=== PATIENT | female | born 1945 | race Hispanic/Latino ===

== ENCOUNTER → 2019-04-29 | Outpatient (CLI) | payer OTHER ==
[2019-04-29 16:56] LABS: BASOPHILS % (AUTO) 0.3 % (0.0-5.0); EOSINOPHILS % (AUTO) 2.5 % (0.0-8.0); HEMATOCRIT 31.9 % (36-48); LYMPHOCYTES % (AUTO) 34.4 % (21.0-51.0); MEAN CORPUSCULAR HEMOGLOBIN 29.6 pg (27.0-33.0); MEAN CORPUSCULAR HGB CONC 33.1 g/dL (32.0-36.0); MEAN CORPUSCULAR VOLUME 89.6 fL (79-99); MONOCYTES % (AUTO) 7.5 % (3.0-13.0); NEUTROPHILS % (AUTO) 55.3 % (40.0-77.0); PLATELET COUNT (AUTO) 92 K/uL (130-400); RED BLOOD CELL COUNT(AUTO) 3.56 MIL/uL (4.00-5.50); RED CELL DISTRIBUTION WIDTH 15.9 % (11.0-15.5); WHITE BLOOD COUNT (AUTO) 5.6 K/uL (4.8-10.8)
[2019-04-29 17:06] LABS: INR 1.09 (0.85-1.15); PROTHROMBIN TIME 11.4 SEC (9.6-11.6)
[2019-04-29 17:13] LABS: ALBUMIN 3.3 g/dL (3.5-5.0); CREATININE 0.9 mg/dL (0.5-1.5)
[2019-04-29 17:26] LABS: BILIRUBIN,TOTAL 1.2 mg/dL (0.2-1.0); TOTAL PROTEIN, SERUM 7.3 g/dL (6.0-8.3)
[2019-05-05 05:10] LABS: HEPATITIS Bs ANTIGEN SCREEN P Negative (Negative)
== END | disposition home or self-care (01) ==
LOC: LAB 15:47
PROVIDERS: ATTEND Internal Medicine Gastroenterology
DX: R94.5 Abnormal results of liver function studies (principal); R19.7 Diarrhea, unspecified
CPT/HCPCS: 36415; 80053; 82105; 82172; 82247; 82977; 83010; 83883; 84460; 85025; 85610; 86706; 86717; 87177; 87340; 87350; 87507

== ENCOUNTER → 2021-10-26 | Outpatient (CLI) | payer OTHER | END | disposition home or self-care (01) | LOC: RAH 09:31 | PROVIDERS: ATTEND Internal Medicine Gastroenterology | DX: K80.20 Calculus of gallbladder without cholecystitis without obstruction (principal); K76.89 Other specified diseases of liver; R18.8 Other ascites | CPT/HCPCS: 76700 ==

== ENCOUNTER → 2021-11-21 | Outpatient (CLI) | payer OTHER ==
[~2021-11-21] MED LIST: ALBUMIN (HUMAN) 25% 200 ML IV SCH; LIDOCAINE HCL MPF 1% 5ML VIAL ONE
[2021-11-21 08:35] LABS: BASOPHILS % (AUTO) 0.6 % (0.0-5.0); EOSINOPHILS % (AUTO) 3.1 % (0.0-8.0); HEMATOCRIT 27.3 % (36-48); LYMPHOCYTES % (AUTO) 31.4 % (21.0-51.0); MEAN CORPUSCULAR HEMOGLOBIN 26.1 pg (27.0-33.0); MEAN CORPUSCULAR HGB CONC 30.4 g/dL (32.0-36.0); MEAN CORPUSCULAR VOLUME 85.8 fL (79-99); MONOCYTES % (AUTO) 10.4 % (3.0-13.0); NEUTROPHILS % (AUTO) 54.2 % (40.0-77.0); PLATELET COUNT (AUTO) 59 K/uL (130-400); RED BLOOD CELL COUNT(AUTO) 3.18 MIL/uL (4.00-5.50); RED CELL DISTRIBUTION WIDTH 17.8 % (11.0-15.5); WHITE BLOOD COUNT (AUTO) 3.6 K/uL (4.8-10.8)
[2021-11-21 08:44] LABS: INR 1.28 (0.85-1.15); PROTHROMBIN TIME 13.6 SEC (9.6-11.6)
[2021-11-21 08:53] LABS: ALBUMIN 2.9 g/dL (3.5-5.0); BILIRUBIN,TOTAL 1.3 mg/dL (0.2-1.0); CREATININE 0.7 mg/dL (0.5-1.5)
[2021-11-21 09:45] LABS: EOSINOPHILS % (MANUAL) 1 % (1-6); LYMPHOCYTES % (MANUAL) 33 % (22-44); MAN.DIFF COMMENT-IMPRESSION MANUAL DIFFERENTIAL; MONOCYTES % (MANUAL) 3 % (2-9); PLATELET MORPHOLOGY COMMENT DECREASED; SEGMENTED NEUTROPHILS % 63 % (40-70)
[2021-11-21 14:49] LABS: APPEARANCE BODY FLUID SLIGHTLY CLOUDY (CLEAR); SPECIMENTYPE,BODY FLUID ASCITES
[2021-11-21 14:50] LABS: BODY FLUID RBC 620 /cu. mm.; BODY FLUID WBC 114 /cu. mm.; COLOR,BODY FLUID YELLOW (LT YELLOW); TOTAL VOLUME,BODY FLUID 5200 mL
[2021-11-21 14:52] LABS: BF LYMPHOCYTE 76 %; BF MONOCYTE 7 %
== END | disposition home or self-care (01) ==
LOC: RAH 07:29
PROVIDERS: ATTEND Internal Medicine Gastroenterology
DX: R18.8 Other ascites (principal); K76.89 Other specified diseases of liver; Z79.01 Long term (current) use of anticoagulants; Z79.899 Other long term (current) drug therapy
CPT/HCPCS: 36415; 49083; 80053; 82042; 84157; 85025 ×2; 85610; 87071; 87205; 88112; 88305; 89051; C1729; J3490; P9046

== ENCOUNTER 2022-02-02 08:19 | Emergency (ER) | payer OTHER ==
[~2022-02-02] VITALS: Ht 154.9 cm; Wt 89.4 kg
[2022-02-02 08:21] VITALS: BP 127/43
[2022-02-02] MEDS ORDERED: FURO40TA5 PO (23:27)
[2022-02-02] MEDS ORDERED: PANT40TA54 PO (23:27)
[2022-02-02] MEDS ORDERED: GLIM4TAB36 PO (23:27)
[2022-02-02] MEDS ORDERED: SPIR100T5 PO (23:27)
[2022-02-02] MEDS ORDERED: TRAZ-253 PO (23:28)
[2022-02-02] MEDS ORDERED: SIMV-43 PO (23:28)
[2022-02-02] MEDS ORDERED: LOSA25TA41 PO (23:28)
[2022-02-02] MEDS ORDERED: ONDA-104 PO (23:32)
== END 2022-02-02 09:45 | disposition home or self-care (01) ==
LOC: EDH 08:19
DX: Z04.89 Encounter for examination and observation for other specified reasons (principal); E11.9 Type 2 diabetes mellitus without complications
CPT/HCPCS: 99281

== ENCOUNTER → 2022-02-02 | Outpatient (CLI) | payer OTHER ==
[~2022-02-02] MED LIST changes: +FURO40TA5 PO; +GLIM4TAB36 PO; -LIDOCAINE HCL MPF 1% 5ML VIAL ONE; +LOSA25TA41 PO; +ONDA-104 PO; +PANT40TA54 PO; +SIMV-43 PO; +SPIR100T5 PO; +TRAZ-253 PO
[2022-02-02 13:04] LABS: INR 1.17 (0.85-1.15); PROTHROMBIN TIME 12.6 SEC (9.6-11.6)
[2022-02-02 13:06] LABS: BILIRUBIN,TOTAL 1.4 mg/dL (0.2-1.0); TOTAL PROTEIN, SERUM 7.5 g/dL (6.0-8.3)
== END | disposition home or self-care (01) ==
LOC: RAH 11:39
PROVIDERS: ATTEND Internal Medicine Gastroenterology
DX: R18.8 Other ascites (principal); K42.0 Umbilical hernia with obstruction, without gangrene; K74.60 Unspecified cirrhosis of liver; I10 Essential (primary) hypertension; E11.9 Type 2 diabetes mellitus without complications; E66.9 Obesity, unspecified; Z68.32 Body mass index [BMI] 32.0-32.9, adult
CPT/HCPCS: 36415; 76705; 80053; 85610; P9046

== ENCOUNTER 2022-03-11 14:21 | Emergency (ER) | payer OTHER ==
[~2022-03-11] VITALS: Ht 157.5 cm; Wt 81.6 kg
[~2022-03-11 14:21] MED LIST changes: -ALBUMIN (HUMAN) 25% 200 ML IV SCH; -LOSA25TA41 PO
[2022-03-11 15:03] LABS: BASOPHILS % (AUTO) 0.3 % (0.0-5.0); EOSINOPHILS % (AUTO) 1.9 % (0.0-8.0); HEMATOCRIT 32.1 % (36-48); LYMPHOCYTES % (AUTO) 27.2 % (21.0-51.0); MEAN CORPUSCULAR HEMOGLOBIN 26.5 pg (27.0-33.0); MEAN CORPUSCULAR HGB CONC 31.2 g/dL (32.0-36.0); MEAN CORPUSCULAR VOLUME 84.9 fL (79-99); MONOCYTES % (AUTO) 9.1 % (3.0-13.0); NEUTROPHILS % (AUTO) 61.2 % (40.0-77.0); PLATELET COUNT (AUTO) 54 K/uL (130-400); RED BLOOD CELL COUNT(AUTO) 3.78 MIL/uL (4.00-5.50); RED CELL DISTRIBUTION WIDTH 18.5 % (11.0-15.5); WHITE BLOOD COUNT (AUTO) 3.2 K/uL (4.8-10.8)
[2022-03-11 15:33] LABS: B-TYPE NATRIURETIC PEPTIDE 71 pg/mL (0-100)
[2022-03-11 15:39] LABS: CREATININE 0.9 mg/dL (0.5-1.5); POTASSIUM 3.3 mmol/L (3.5-5.1)
[2022-03-11 15:43] LABS: ALBUMIN 3.5 g/dL (3.5-5.0); BILIRUBIN,TOTAL 1.3 mg/dL (0.2-1.0); TOTAL PROTEIN, SERUM 7.6 g/dL (6.0-8.3)
[2022-03-11 15:47] LABS: PLATELET MORPHOLOGY COMMENT MARKED DECREASE
[2022-03-11 16:10] VITALS: BP 112/63
[2022-03-11] MEDS ORDERED: GUAFACSF5L PO (16:32)
[2022-03-11] MEDS ORDERED: HYDR25CA PO (16:32)
== END 2022-03-11 16:45 | disposition home or self-care (01) ==
LOC: EDH 14:21
DX: J90 Pleural effusion, not elsewhere classified (principal); K74.60 Unspecified cirrhosis of liver; F43.0 Acute stress reaction; J44.9 Chronic obstructive pulmonary disease, unspecified; E11.9 Type 2 diabetes mellitus without complications; Z98.890 Other specified postprocedural states
CPT/HCPCS: 36415; 71045; 71250; 80053; 83880; 84484; 85025; 93005

== ENCOUNTER 2022-03-19 08:59 | Day surgery (SDC) | payer OTHER ==
[2022-03-19] VITALS (11 sets, daily range): BP systolic 109–176; BP diastolic 42–58
[~2022-03-19] VITALS: Ht 157.5 cm; Wt 77.6 kg
[~2022-03-19 08:59] MED LIST changes: +GUAFACSF5L PO; +HYDR25CA PO
[2022-03-19 09:44] LABS: CREATININE 0.9 mg/dL (0.5-1.5); EOSINOPHILS % (AUTO) 1.3 % (0.0-8.0); HEMATOCRIT 35.2 % (36-48); LYMPHOCYTES % (AUTO) 50.3 % (21.0-51.0); MEAN CORPUSCULAR HEMOGLOBIN 27.1 pg (27.0-33.0); MEAN CORPUSCULAR HGB CONC 31.8 g/dL (32.0-36.0); MONOCYTES % (AUTO) 14.5 % (3.0-13.0); NEUTROPHILS % (AUTO) 33.9 % (40.0-77.0); PLATELET COUNT (AUTO) 42 K/uL (130-400); POTASSIUM 4.3 mmol/L (3.5-5.1); RED BLOOD CELL COUNT(AUTO) 4.14 MIL/uL (4.00-5.50); RED CELL DISTRIBUTION WIDTH 19.2 % (11.0-15.5); WHITE BLOOD COUNT (AUTO) 1.6 K/uL (4.8-10.8)
[2022-03-19 09:45] LABS: INR 1.17 (0.85-1.15); PROTHROMBIN TIME 12.6 SEC (9.6-11.6)
[2022-03-19 09:47] LABS: PARTIAL THROMBOPLASTIN TIME 32.3 SEC (26.3-35.5)
[2022-03-19 09:49] LABS: ALBUMIN 3.2 g/dL (3.5-5.0); BILIRUBIN,TOTAL 0.9 mg/dL (0.2-1.0); TOTAL PROTEIN, SERUM 7.7 g/dL (6.0-8.3)
[2022-03-19] MEDS ORDERED: LEVO500T90 PO (12:02)
[2022-03-19] MEDS ORDERED: SERT-439 PO (12:02)
[2022-03-19] MEDS ORDERED: 0.9%NACL 1000ML 1,000 ML IV ONE (12:37)
[2022-03-19] MEDS ORDERED: LIDOCAINE PF 100MG/5ML (2%) SYRINGE 5ML ONE (13:55)
[2022-03-19 17:19] LABS: APPEARANCE BODY FLUID CLOUDY (CLEAR); COLOR,BODY FLUID DARK YELLOW (LT YELLOW); SPECIMENTYPE,BODY FLUID PLEURAL; TOTAL VOLUME,BODY FLUID 575 mL
[2022-03-19 17:20] LABS: BODY FLUID RBC 4265 /cu. mm.; BODY FLUID WBC 157 /cu. mm.
[2022-03-19 18:49] LABS: BF LYMPHOCYTE 40 %; BF MONOCYTE 1 %; BF OTHER CELLS 20
== END 2022-03-19 14:30 | disposition home or self-care (01) ==
LOC: ENDO 08:59 → EDSTATUS 12:30 → ENDO 14:30
PROVIDERS: ATTEND Internal Medicine
DX: J90 Pleural effusion, not elsewhere classified (principal); R06.02 Shortness of breath; E11.9 Type 2 diabetes mellitus without complications; J45.909 Unspecified asthma, uncomplicated; Z83.3 Family history of diabetes mellitus; Z98.890 Other specified postprocedural states; Z79.01 Long term (current) use of anticoagulants
CPT/HCPCS: 32555; 36415; 71045; 76604; 80053; 82945; 83615; 83986; 84157; 85025; 85610; 85730; 87071; 87101; 87116; 87205; 87206 ×2; 87635; 89051; A4215 ×2; A4221; A4222; A4223; A4606; A4620; A4663; J2001; J7030 ×2

== ENCOUNTER 2022-04-28 07:08 | Inpatient (IN) | payer OTHER ==
[~2022-04-28] VITALS: Ht 157.5 cm; Wt 54.7 kg
[~2022-04-28 07:08] MED LIST changes: +GUAI118S13 PO; +LEVO500T90 PO; +SERT-439 PO
[2022-04-28 08:04] LABS: BASOPHILS % (AUTO) 0.1 % (0.0-5.0); HEMATOCRIT 33.1 % (36-48); LYMPHOCYTES % (AUTO) 10.8 % (21.0-51.0); MEAN CORPUSCULAR HEMOGLOBIN 29.1 pg (27.0-33.0); MEAN CORPUSCULAR HGB CONC 33.5 g/dL (32.0-36.0); MEAN CORPUSCULAR VOLUME 86.6 fL (79-99); MONOCYTES % (AUTO) 8.5 % (3.0-13.0); NEUTROPHILS % (AUTO) 80.5 % (40.0-77.0); PLATELET COUNT (AUTO) 66 K/uL (130-400); RED BLOOD CELL COUNT(AUTO) 3.82 MIL/uL (4.00-5.50); RED CELL DISTRIBUTION WIDTH 19.6 % (11.0-15.5); WHITE BLOOD COUNT (AUTO) 6.9 K/uL (4.8-10.8)
[2022-04-28 08:20] LABS: ALBUMIN 2.9 g/dL (3.5-5.0); CREATININE 1.6 mg/dL (0.5-1.5)
[2022-04-28 08:21] LABS: INR 1.34 (0.85-1.15); PROTHROMBIN TIME 14.4 SEC (9.6-11.6)
[2022-04-28 08:22] LABS: PARTIAL THROMBOPLASTIN TIME 27.3 SEC (26.3-35.5)
[2022-04-28 08:26] LABS: POTASSIUM 2.8 mmol/L (3.5-5.1)
[2022-04-28 08:39] LABS: APPEARANCE,URINE SL CLOUDY (CLEAR); BILIRUBIN,URINE SMALL (NEGATIVE); COLOR,URINE DARK YELLOW (YELLOW); GLUCOSE, URINE (UA) 100 mg/dL (NEGATIVE); KETONES,URINE 5 mg/dL (NEGATIVE); LEUKOCYTE ESTERASE ,URINE NEGATIVE (NEGATIVE); NITRATE,URINE POSITIVE (NEGATIVE); OCCULT BLOOD,URINE NEGATIVE (NEGATIVE); PROTEIN,URINE TRACE mg/dL (NEGATIVE); UROBILINOGEN,URINE 0.2 mg/dL (0.2-1.0)
[2022-04-28 08:43] LABS: MAGNESIUM 1.6 mg/dL (1.80-2.40); TOTAL PROTEIN, SERUM 7.1 g/dL (6.0-8.3)
[2022-04-28 08:54] LABS: BACTERIA,URINE Few /HPF (None Seen); MUCUS,URINE Moderate LPF (None Seen); RBC,URINE None Seen /HPF (0-1); WBC,URINE 0-1 /HPF (0-1)
[2022-04-28] MEDS ORDERED: POTASSIUM BICARB/CIT AC 25 MEQ TABLET.EFF PO ONE (09:00)
[2022-04-28] MEDS ORDERED: ACETAMINOPHEN 325 MG TAB PO PRN (09:30)
[2022-04-28] MEDS ORDERED: MAGNESIUM 4GM PREMIX 100ML 100 ML IV ONE (09:30)
[2022-04-28] MEDS ORDERED: LIDOCAINE HCL-MPF 1% 2ML VIAL IJ PRN (09:30)
[2022-04-28] MEDS ORDERED: ONDANSETRON 4MG INJ IVP PRN (09:30)
[2022-04-28] MEDS ORDERED: TETANUS/DIPHTHERIA TOXOID [ADULT] 0.5 ML VIAL IM ONE (09:30)
[2022-04-28] MEDS ORDERED: POTASSIUM CHLORIDE 20MEQ/100ML 100 ML IV PRN (09:30)
[2022-04-28] MEDS: 0.9%NACL 1000ML 1,000 ML IV SCH ×2 (10:15→21:35)
[2022-04-28] MEDS: INSULIN HUMULIN R 100 UNIT/ML 3ML SQ SCH ×3 (11:30→20:10)
[2022-04-28 12:00] VITALS: BP 132/59
[2022-04-28] MEDS: POTASSIUM CHLORIDE 10% ELIXIR 20 MEQ/15 ML UDCUP PO PRN ×2 (13:58→16:44)
[2022-04-28] MEDS: MIDODRINE HCL 5 MG TABLET PO SCH ×2 (14:00→20:12)
[2022-04-28] MEDS: ACETAMINOPHEN 325 MG TAB PO PRN (14:03)
[2022-04-28 16:00] VITALS: BP 121/49
[2022-04-28] MEDS ORDERED: BUSP5TAB3 PO (16:18)
[2022-04-28] MEDS ORDERED: LOSA25TA41 PO (16:18)
[2022-04-28] MEDS: FUROSEMIDE 40 MG TABLET PO SCH (20:12)
[2022-04-28] MEDS: SIMVASTATIN 20 MG TABLET PO SCH (20:12)
[2022-04-28] MEDS: BUSPIRONE HCL 5 MG TABLET PO SCH (20:12)
[2022-04-28] MEDS: SPIRONOLACTONE 25 MG TAB PO SCH (20:13)
[2022-04-28 20:49] VITALS: BP 117/47
[2022-04-28] MEDS ORDERED: GUAIFENESIN-CODEINE 5 ML SYRUP ONE (21:31)
[2022-04-29] VITALS (7 sets, daily range): BP systolic 95–121; BP diastolic 42–68
[2022-04-29 05:25] LABS: BASOPHILS % (AUTO) 0.4 % (0.0-5.0); EOSINOPHILS % (AUTO) 1.9 % (0.0-8.0); HEMATOCRIT 32.5 % (36-48); MEAN CORPUSCULAR HEMOGLOBIN 28.2 pg (27.0-33.0); MEAN CORPUSCULAR HGB CONC 32.3 g/dL (32.0-36.0); MEAN CORPUSCULAR VOLUME 87.4 fL (79-99); MONOCYTES % (AUTO) 10.3 % (3.0-13.0); PLATELET COUNT (AUTO) 60 K/uL (130-400); RED BLOOD CELL COUNT(AUTO) 3.72 MIL/uL (4.00-5.50); RED CELL DISTRIBUTION WIDTH 20.3 % (11.0-15.5); WHITE BLOOD COUNT (AUTO) 4.7 K/uL (4.8-10.8)
[2022-04-29 05:44] LABS: CREATININE 1.2 mg/dL (0.5-1.5); MAGNESIUM 2.3 mg/dL (1.80-2.40); POTASSIUM 3.7 mmol/L (3.5-5.1)
[2022-04-29] MEDS: KCL 20 MEQ ERTAB PO PRN ×3 (06:00→20:47)
[2022-04-29] MEDS: INSULIN HUMULIN R 100 UNIT/ML 3ML SQ SCH ×4 (06:18→20:44)
[2022-04-29] MEDS: PANTOPRAZOLE 40 MG TAB DR PO SCH (10:48)
[2022-04-29] MEDS: SPIRONOLACTONE 25 MG TAB PO SCH ×2 (10:48→20:46)
[2022-04-29] MEDS: FUROSEMIDE 40 MG TABLET PO SCH ×2 (10:50→20:47)
[2022-04-29] MEDS: SERTRALINE HCL 50 MG TABLET PO SCH (10:50)
[2022-04-29] MEDS: BUSPIRONE HCL 5 MG TABLET PO SCH ×2 (10:50→20:46)
[2022-04-29] MEDS: LOSARTAN 25 MG TABLET PO SCH (10:50)
[2022-04-29] MEDS: MIDODRINE HCL 5 MG TABLET PO SCH ×3 (10:50→20:46)
[2022-04-29] MEDS: GUAIFENESIN-CODEINE 5 ML SYRUP PO PRN ×2 (10:51→20:46)
[2022-04-29] MEDS ORDERED: LACTULOSE 20 GM/30 ML UDCUP PO PRN (14:30)
[2022-04-29] MEDS ORDERED: FUROSEMIDE 40MG VIAL IV ONE (15:00)
[2022-04-29] MEDS: ALPRAZOLAM 0.5 MG TABLET PO PRN (20:46)
[2022-04-29] MEDS: TRAZODONE HCL 50 MG TAB PO PRN (20:46)
[2022-04-29] MEDS: SIMVASTATIN 20 MG TABLET PO SCH (20:46)
[2022-04-30 04:46] VITALS: BP 101/55
[2022-04-30 04:54] LABS: HEMATOCRIT 31.1 % (36-48); MEAN CORPUSCULAR HEMOGLOBIN 28.5 pg (27.0-33.0); MEAN CORPUSCULAR HGB CONC 32.2 g/dL (32.0-36.0); MEAN CORPUSCULAR VOLUME 88.6 fL (79-99); RED BLOOD CELL COUNT(AUTO) 3.51 MIL/uL (4.00-5.50); RED CELL DISTRIBUTION WIDTH 20.7 % (11.0-15.5); WHITE BLOOD COUNT (AUTO) 5.7 K/uL (4.8-10.8)
[2022-04-30 05:14] LABS: CREATININE 1.6 mg/dL (0.5-1.5); MAGNESIUM 2.1 mg/dL (1.80-2.40)
[2022-04-30] MEDS: INSULIN HUMULIN R 100 UNIT/ML 3ML SQ SCH ×4 (05:41→21:00)
[2022-04-30 08:00] VITALS: BP 103/49
[2022-04-30] MEDS: FUROSEMIDE 40 MG TABLET PO SCH ×2 (09:10→21:14)
[2022-04-30] MEDS: MIDODRINE HCL 5 MG TABLET PO SCH ×3 (09:10→21:14)
[2022-04-30] MEDS: SERTRALINE HCL 50 MG TABLET PO SCH (09:10)
[2022-04-30] MEDS: LOSARTAN 25 MG TABLET PO SCH (09:10)
[2022-04-30] MEDS: BUSPIRONE HCL 5 MG TABLET PO SCH ×2 (09:10→21:15)
[2022-04-30] MEDS: SPIRONOLACTONE 25 MG TAB PO SCH ×2 (09:11→21:14)
[2022-04-30] MEDS: PANTOPRAZOLE 40 MG TAB DR PO SCH (09:11)
[2022-04-30 12:00] VITALS: BP 102/38
[2022-04-30 16:00] VITALS: BP 94/39
[2022-04-30] MEDS: GUAIFENESIN-CODEINE 5 ML SYRUP PO PRN (17:51)
[2022-04-30 20:00] VITALS: BP 92/40
[2022-04-30] MEDS: SIMVASTATIN 20 MG TABLET PO SCH (21:14)
[2022-05-01] VITALS (7 sets, daily range): BP systolic 92–116; BP diastolic 33–53
[2022-05-01 02:47] LABS: TOTAL PROTEIN, SERUM 6.1 g/dL (6.0-8.3)
[2022-05-01] MEDS: INSULIN HUMULIN R 100 UNIT/ML 3ML SQ SCH ×4 (06:55→21:00)
[2022-05-01] MEDS ORDERED: LIDOCAINE HCL MPF 1% 5ML VIAL ONE (07:28)
[2022-05-01 08:13] LABS: ABG BASE EXCESS 0.7 mmol/L (-2.0-3.0); ABG HCO3 23.9 mmol/L (21.0-28.0); ABG OXYGEN SATURATION 93.7 % (95.0-99.0); ABG PCO2 34 mmHg (32-45)
[2022-05-01] MEDS: SPIRONOLACTONE 25 MG TAB PO SCH ×2 (09:14→20:15)
[2022-05-01] MEDS: FUROSEMIDE 40 MG TABLET PO SCH ×2 (09:15→20:16)
[2022-05-01] MEDS: PANTOPRAZOLE 40 MG TAB DR PO SCH (09:15)
[2022-05-01] MEDS: BUSPIRONE HCL 5 MG TABLET PO SCH ×2 (09:15→20:15)
[2022-05-01] MEDS: LACTULOSE 20 GM/30 ML UDCUP PO SCH ×2 (09:15→20:23)
[2022-05-01] MEDS: SERTRALINE HCL 50 MG TABLET PO SCH (09:15)
[2022-05-01] MEDS: MIDODRINE HCL 5 MG TABLET PO SCH ×3 (09:15→20:15)
[2022-05-01] MEDS: ACETAMINOPHEN 325 MG TAB PO PRN (15:48)
[2022-05-01 16:44] LABS: SPECIMENTYPE,BODY FLUID PLEURAL
[2022-05-01 16:45] LABS: APPEARANCE BODY FLUID SLIGHTLY CLOUDY (CLEAR); BODY FLUID WBC 60 /cu. mm.; COLOR,BODY FLUID YELLOW (LT YELLOW); TOTAL VOLUME,BODY FLUID 1400 mL
[2022-05-01 16:46] LABS: BODY FLUID RBC 1891 /cu. mm.
[2022-05-01] MEDS: SIMVASTATIN 20 MG TABLET PO SCH (20:15)
[2022-05-01 21:25] LABS: BF LYMPHOCYTE 34 %; BF OTHER CELLS 3
[2022-05-02 05:16] VITALS: BP 94/45
[2022-05-02 05:23] LABS: BASOPHILS % (AUTO) 0.4 % (0.0-5.0); EOSINOPHILS % (AUTO) 3.3 % (0.0-8.0); HEMATOCRIT 31.4 % (36-48); LYMPHOCYTES % (AUTO) 23.9 % (21.0-51.0); MEAN CORPUSCULAR HEMOGLOBIN 28.8 pg (27.0-33.0); MEAN CORPUSCULAR HGB CONC 32.8 g/dL (32.0-36.0); MEAN CORPUSCULAR VOLUME 87.7 fL (79-99); MONOCYTES % (AUTO) 14.2 % (3.0-13.0); NEUTROPHILS % (AUTO) 57.8 % (40.0-77.0); PLATELET COUNT (AUTO) 49 K/uL (130-400); RED BLOOD CELL COUNT(AUTO) 3.58 MIL/uL (4.00-5.50); RED CELL DISTRIBUTION WIDTH 19.8 % (11.0-15.5); WHITE BLOOD COUNT (AUTO) 4.9 K/uL (4.8-10.8)
[2022-05-02 05:31] LABS: CREATININE 1.1 mg/dL (0.5-1.5); POTASSIUM 4.6 mmol/L (3.5-5.1)
[2022-05-02] MEDS: INSULIN HUMULIN R 100 UNIT/ML 3ML SQ SCH ×4 (06:47→20:50)
[2022-05-02 08:00] VITALS: BP 109/40
[2022-05-02] MEDS: LACTULOSE 20 GM/30 ML UDCUP PO SCH ×2 (09:00→20:47)
[2022-05-02] MEDS: PANTOPRAZOLE 40 MG TAB DR PO SCH (09:11)
[2022-05-02] MEDS: MIDODRINE HCL 5 MG TABLET PO SCH ×3 (09:11→20:47)
[2022-05-02] MEDS: SERTRALINE HCL 50 MG TABLET PO SCH (09:11)
[2022-05-02] MEDS: RIFAXIMIN 550 MG TABLET PO SCH ×2 (09:12→20:47)
[2022-05-02] MEDS: BUSPIRONE HCL 5 MG TABLET PO SCH ×2 (09:12→20:46)
[2022-05-02] MEDS: GUAIFENESIN-CODEINE 5 ML SYRUP PO PRN ×2 (10:37→20:47)
[2022-05-02] MEDS: ACETAMINOPHEN 325 MG TAB PO PRN (10:41)
[2022-05-02 11:44] VITALS: BP 105/43
[2022-05-02] MEDS: SPIRONOLACTONE 25 MG TAB PO SCH ×2 (11:51→21:00)
[2022-05-02] MEDS: FUROSEMIDE 40 MG TABLET PO SCH ×2 (11:52→21:00)
[2022-05-02 16:00] VITALS: BP 107/47
[2022-05-02 19:37] VITALS: BP 108/47
[2022-05-02] MEDS: ALPRAZOLAM 0.5 MG TABLET PO PRN (20:46)
[2022-05-02] MEDS: SIMVASTATIN 20 MG TABLET PO SCH (20:47)
[2022-05-02] MEDS: TRAZODONE HCL 50 MG TAB PO PRN (20:47)
[2022-05-03 00:29] VITALS: BP 105/49
[2022-05-03 03:57] VITALS: BP 110/49
[2022-05-03] MEDS: INSULIN HUMULIN R 100 UNIT/ML 3ML SQ SCH ×4 (05:53→21:01)
[2022-05-03 07:02] VITALS: BP 112/50
[2022-05-03] MEDS: PANTOPRAZOLE 40 MG TAB DR PO SCH (09:00)
[2022-05-03] MEDS: FUROSEMIDE 40 MG TABLET PO SCH (09:00)
[2022-05-03] MEDS: BUSPIRONE HCL 5 MG TABLET PO SCH ×2 (09:00→20:46)
[2022-05-03] MEDS: LACTULOSE 20 GM/30 ML UDCUP PO SCH ×2 (09:00→20:46)
[2022-05-03] MEDS: SERTRALINE HCL 50 MG TABLET PO SCH (09:00)
[2022-05-03] MEDS: MIDODRINE HCL 5 MG TABLET PO SCH ×3 (09:00→20:46)
[2022-05-03] MEDS: SPIRONOLACTONE 25 MG TAB PO SCH ×2 (09:00→20:47)
[2022-05-03] MEDS: RIFAXIMIN 550 MG TABLET PO SCH ×2 (09:00→20:47)
[2022-05-03 12:00] VITALS: BP 112/47
[2022-05-03 12:58] LABS: BASOPHILS % (AUTO) 0.3 % (0.0-5.0); HEMATOCRIT 33.9 % (36-48); LYMPHOCYTES % (AUTO) 25.3 % (21.0-51.0); MEAN CORPUSCULAR HEMOGLOBIN 28.7 pg (27.0-33.0); MEAN CORPUSCULAR HGB CONC 32.7 g/dL (32.0-36.0); MEAN CORPUSCULAR VOLUME 87.6 fL (79-99); MONOCYTES % (AUTO) 13.2 % (3.0-13.0); NEUTROPHILS % (AUTO) 56.9 % (40.0-77.0); PLATELET COUNT (AUTO) 59 K/uL (130-400); RED BLOOD CELL COUNT(AUTO) 3.87 MIL/uL (4.00-5.50); RED CELL DISTRIBUTION WIDTH 19.7 % (11.0-15.5); WHITE BLOOD COUNT (AUTO) 3.7 K/uL (4.8-10.8)
[2022-05-03 13:00] LABS: POTASSIUM 3.8 mmol/L (3.5-5.1)
[2022-05-03 13:54] LABS: PLATELET MORPHOLOGY COMMENT DECREASED
[2022-05-03 16:06] VITALS: BP 112/49
[2022-05-03] MEDS: FUROSEMIDE 40MG VIAL IV SCH (17:40)
[2022-05-03 20:00] VITALS: BP 112/48
[2022-05-03] MEDS: ALPRAZOLAM 0.5 MG TABLET PO PRN (20:46)
[2022-05-03] MEDS: TRAZODONE HCL 50 MG TAB PO PRN (20:46)
[2022-05-03] MEDS: GUAIFENESIN-CODEINE 5 ML SYRUP PO PRN (20:46)
[2022-05-03] MEDS: SIMVASTATIN 20 MG TABLET PO SCH (20:46)
[2022-05-04 00:27] VITALS: BP 121/47
[2022-05-04 04:00] VITALS: BP 117/73
[2022-05-04] MEDS: FUROSEMIDE 40MG VIAL IV SCH ×2 (05:19→17:31)
[2022-05-04] MEDS: INSULIN HUMULIN R 100 UNIT/ML 3ML SQ SCH ×4 (06:37→20:50)
[2022-05-04] MEDS: RIFAXIMIN 550 MG TABLET PO SCH ×2 (07:20→19:59)
[2022-05-04] MEDS: SPIRONOLACTONE 25 MG TAB PO SCH ×2 (07:20→19:59)
[2022-05-04] MEDS: MIDODRINE HCL 5 MG TABLET PO SCH ×3 (07:20→19:59)
[2022-05-04] MEDS: PANTOPRAZOLE 40 MG TAB DR PO SCH (07:20)
[2022-05-04] MEDS: SERTRALINE HCL 50 MG TABLET PO SCH (07:20)
[2022-05-04] MEDS: BUSPIRONE HCL 5 MG TABLET PO SCH ×2 (07:21→19:59)
[2022-05-04] MEDS: LACTULOSE 20 GM/30 ML UDCUP PO SCH ×2 (07:21→19:34)
[2022-05-04 08:00] VITALS: BP 115/48
[2022-05-04 11:45] VITALS: BP 100/38
[2022-05-04 16:00] VITALS: BP 114/36
[2022-05-04] MEDS: SIMVASTATIN 20 MG TABLET PO SCH (19:59)
[2022-05-04 20:00] VITALS: BP 109/49
[2022-05-05] VITALS: BP 124/56
[2022-05-05 04:00] VITALS: BP 108/51
[2022-05-05] MEDS: FUROSEMIDE 40MG VIAL IV SCH ×2 (04:41→17:00)
[2022-05-05 05:33] LABS: HEMATOCRIT 31.1 % (36-48); MEAN CORPUSCULAR HEMOGLOBIN 28.5 pg (27.0-33.0); MEAN CORPUSCULAR HGB CONC 32.5 g/dL (32.0-36.0); MEAN CORPUSCULAR VOLUME 87.6 fL (79-99); RED BLOOD CELL COUNT(AUTO) 3.55 MIL/uL (4.00-5.50); RED CELL DISTRIBUTION WIDTH 18.6 % (11.0-15.5); WHITE BLOOD COUNT (AUTO) 3.4 K/uL (4.8-10.8)
[2022-05-05 05:53] LABS: ALBUMIN 2.1 g/dL (3.5-5.0); POTASSIUM 3.8 mmol/L (3.5-5.1); TOTAL PROTEIN, SERUM 6.2 g/dL (6.0-8.3)
[2022-05-05] MEDS: INSULIN HUMULIN R 100 UNIT/ML 3ML SQ SCH ×4 (05:58→20:12)
[2022-05-05] MEDS: LACTULOSE 20 GM/30 ML UDCUP PO SCH ×3 (07:57→20:20)
[2022-05-05] MEDS: GUAIFENESIN-CODEINE 5 ML SYRUP PO PRN (07:57)
[2022-05-05] MEDS: SPIRONOLACTONE 25 MG TAB PO SCH ×2 (07:58→20:09)
[2022-05-05] MEDS: SERTRALINE HCL 50 MG TABLET PO SCH (07:58)
[2022-05-05 07:59] VITALS: BP 105/46
[2022-05-05] MEDS: BUSPIRONE HCL 5 MG TABLET PO SCH ×2 (07:59→20:09)
[2022-05-05] MEDS: ACETAMINOPHEN 325 MG TAB PO PRN (07:59)
[2022-05-05] MEDS: RIFAXIMIN 550 MG TABLET PO SCH ×2 (07:59→20:09)
[2022-05-05] MEDS: PANTOPRAZOLE 40 MG TAB DR PO SCH (07:59)
[2022-05-05] MEDS: MIDODRINE HCL 5 MG TABLET PO SCH ×3 (08:00→20:08)
[2022-05-05 11:46] VITALS: BP 114/51
[2022-05-05 16:12] VITALS: BP 101/48
[2022-05-05] MEDS: SIMVASTATIN 20 MG TABLET PO SCH (20:09)
[2022-05-05 20:28] VITALS: BP 101/49
[2022-05-06] VITALS (13 sets, daily range): BP systolic 99–119; BP diastolic 35–56
[2022-05-06] MEDS: FUROSEMIDE 40MG VIAL IV SCH ×2 (04:11→18:00)
[2022-05-06 04:33] LABS: HEMATOCRIT 28.6 % (36-48); MEAN CORPUSCULAR HEMOGLOBIN 29.5 pg (27.0-33.0); MEAN CORPUSCULAR HGB CONC 33.2 g/dL (32.0-36.0); MEAN CORPUSCULAR VOLUME 88.8 fL (79-99); RED BLOOD CELL COUNT(AUTO) 3.22 MIL/uL (4.00-5.50); RED CELL DISTRIBUTION WIDTH 18.6 % (11.0-15.5); WHITE BLOOD COUNT (AUTO) 3.7 K/uL (4.8-10.8)
[2022-05-06 04:50] LABS: ALBUMIN 2.2 g/dL (3.5-5.0); CREATININE 0.9 mg/dL (0.5-1.5); POTASSIUM 4.1 mmol/L (3.5-5.1); TOTAL PROTEIN, SERUM 6.3 g/dL (6.0-8.3)
[2022-05-06] MEDS: INSULIN HUMULIN R 100 UNIT/ML 3ML SQ SCH ×4 (06:14→19:57)
[2022-05-06] MEDS: PANTOPRAZOLE 40 MG TAB DR PO SCH (09:21)
[2022-05-06] MEDS: ALPRAZOLAM 0.5 MG TABLET PO PRN (09:21)
[2022-05-06] MEDS: SPIRONOLACTONE 25 MG TAB PO SCH ×2 (09:21→19:56)
[2022-05-06] MEDS: BUSPIRONE HCL 5 MG TABLET PO SCH ×2 (09:21→19:56)
[2022-05-06] MEDS: RIFAXIMIN 550 MG TABLET PO SCH ×2 (09:21→19:56)
[2022-05-06] MEDS: LACTULOSE 20 GM/30 ML UDCUP PO SCH ×2 (09:21→19:56)
[2022-05-06] MEDS: SERTRALINE HCL 50 MG TABLET PO SCH (09:21)
[2022-05-06] MEDS: MIDODRINE HCL 5 MG TABLET PO SCH ×3 (09:21→19:57)
[2022-05-06] MEDS: ACETAMINOPHEN 325 MG TAB PO PRN ×2 (15:47→19:57)
[2022-05-06] MEDS: ALBUMIN (HUMAN) 25% 50 ML IV SCH ×2 (15:48→22:41)
[2022-05-06] MEDS: GUAIFENESIN-CODEINE 5 ML SYRUP PO PRN (16:04)
[2022-05-06] MEDS: SIMVASTATIN 20 MG TABLET PO SCH (19:57)
[2022-05-06 21:00] LABS: APPEARANCE BODY FLUID SLIGHTLY CLOUDY (CLEAR); SPECIMENTYPE,BODY FLUID PLEURAL
[2022-05-06 21:01] LABS: COLOR,BODY FLUID DARK YELLOW (LT YELLOW); TOTAL VOLUME,BODY FLUID 850 mL
[2022-05-06 21:02] LABS: BODY FLUID RBC 1110 /cu. mm.; BODY FLUID WBC 39 /cu. mm.
[2022-05-06 21:52] LABS: BF LYMPHOCYTE 27 %; BF MESOTHELIAL 1 %; BF MONOCYTE 14 %
[2022-05-06] MEDS: TRAZODONE HCL 50 MG TAB PO PRN (23:48)
[2022-05-07] VITALS: BP 97/43
[2022-05-07 04:05] LABS: BASOPHILS % (AUTO) 0.6 % (0.0-5.0); EOSINOPHILS % (AUTO) 3.2 % (0.0-8.0); HEMATOCRIT 28.5 % (36-48); LYMPHOCYTES % (AUTO) 37.1 % (21.0-51.0); MEAN CORPUSCULAR HEMOGLOBIN 29.1 pg (27.0-33.0); MEAN CORPUSCULAR VOLUME 88.2 fL (79-99); MONOCYTES % (AUTO) 10.6 % (3.0-13.0); NEUTROPHILS % (AUTO) 48.2 % (40.0-77.0); PLATELET COUNT (AUTO) 49 K/uL (130-400); RED BLOOD CELL COUNT(AUTO) 3.23 MIL/uL (4.00-5.50); RED CELL DISTRIBUTION WIDTH 18.4 % (11.0-15.5); WHITE BLOOD COUNT (AUTO) 3.4 K/uL (4.8-10.8)
[2022-05-07 04:19] LABS: ALBUMIN 2.6 g/dL (3.5-5.0); MAGNESIUM 1.6 mg/dL (1.80-2.40); POTASSIUM 3.6 mmol/L (3.5-5.1); TOTAL PROTEIN, SERUM 6.2 g/dL (6.0-8.3)
[2022-05-07 04:32] VITALS: BP 101/42
[2022-05-07] MEDS: FUROSEMIDE 40MG VIAL IV SCH (05:13)
[2022-05-07] MEDS: ALBUMIN (HUMAN) 25% 50 ML IV SCH (05:13)
[2022-05-07] MEDS: INSULIN HUMULIN R 100 UNIT/ML 3ML SQ SCH ×2 (05:55→11:15)
[2022-05-07] MEDS: KCL 20 MEQ ERTAB PO PRN (06:15)
[2022-05-07] MEDS ORDERED: MAGNESIUM 2GM PREMIX 50ML 50 ML IV PRN (06:30)
[2022-05-07 07:58] VITALS: BP 101/43
[2022-05-07] MEDS: LACTULOSE 20 GM/30 ML UDCUP PO SCH (09:37)
[2022-05-07] MEDS: SERTRALINE HCL 50 MG TABLET PO SCH (09:38)
[2022-05-07] MEDS: MIDODRINE HCL 5 MG TABLET PO SCH (09:38)
[2022-05-07] MEDS: SPIRONOLACTONE 25 MG TAB PO SCH (09:38)
[2022-05-07] MEDS: RIFAXIMIN 550 MG TABLET PO SCH (09:38)
[2022-05-07] MEDS: PANTOPRAZOLE 40 MG TAB DR PO SCH (09:38)
[2022-05-07] MEDS: BUSPIRONE HCL 5 MG TABLET PO SCH (09:38)
[2022-05-07 11:04] VITALS: BP 103/48
[2022-05-07 16:08] VITALS: BP 117/50
[2022-05-07] MEDS: ALPRAZOLAM 0.5 MG TABLET PO PRN (20:24)
[2022-05-07] MEDS: ACETAMINOPHEN 325 MG TAB PO PRN (20:25)
== END 2022-05-07 22:52 | DRG 557 ==
LOC: EDH 07:08 → EDHIP 09:11 → 4BH 11:58
PROVIDERS: ADMIT Internal Medicine Infectious Disease; ATTEND Internal Medicine Infectious Disease
PROC: 0W9B3ZZ Drainage of Left Pleural Cavity, Percutaneous Approach (ICD-10-PCS; 2022-05-01)
PROC: 5A09357 Assistance with Respiratory Ventilation, Less than 24 Consecutive Hours, Continuous Positive Airway Pressure (ICD-10-PCS; 2022-05-01)
PROC: 0W9B3ZZ Drainage of Left Pleural Cavity, Percutaneous Approach (ICD-10-PCS; principal; 2022-05-06)
DX: M62.82 Rhabdomyolysis (principal); G93.41 Metabolic encephalopathy; J96.01 Acute respiratory failure with hypoxia; J90 Pleural effusion, not elsewhere classified; N17.9 Acute kidney failure, unspecified; E87.6 Hypokalemia; W01.0XXA Fall on same level from slipping, tripping and stumbling without subsequent striking against object, initial encounter; D69.6 Thrombocytopenia, unspecified; K74.60 Unspecified cirrhosis of liver; K76.9 Liver disease, unspecified; D64.9 Anemia, unspecified; E11.22 Type 2 diabetes mellitus with diabetic chronic kidney disease; E78.5 Hyperlipidemia, unspecified; N18.9 Chronic kidney disease, unspecified; M19.90 Unspecified osteoarthritis, unspecified site; E83.42 Hypomagnesemia; E87.5 Hyperkalemia; F41.9 Anxiety disorder, unspecified; I12.9 Hypertensive chronic kidney disease with stage 1 through stage 4 chronic kidney disease, or unspecified chronic kidney disease; Z91.14 Patient's other noncompliance with medication regimen; Z83.3 Family history of diabetes mellitus; Y93.89 Activity, other specified; Y92.89 Other specified places as the place of occurrence of the external cause; Y99.8 Other external cause status; Z74.01 Bed confinement status
CPT/HCPCS: 32554; 32555; 36415; 36600; 70450; 71045; 71250; 72125; 72131; 72141; 72148; 80048; 80053; 81001; 82140; 82550; 82803; 82945; 82948; 83605; 83615; 83735; 83880; 83986; 84155; 84157; 84484; 85025; 85027; 85610; 85730; 87071; 87088; 87116; 87205; 87206; 89051; 90714; 93005; 93306; 93356; 94660; 97039; C1729; G0378; J1815; J1940; J3475; J3480; J3490; J7030; P9047

== ENCOUNTER → 2022-06-13 | Outpatient (CLI) | payer OTHER ==
[~2022-06-13] MED LIST changes: +BUSP5TAB3 PO; -FURO40TA5 PO; -GLIM4TAB36 PO; -HYDR25CA PO; -LEVO500T90 PO; +LIDOCAINE HCL 1% 20 ML VIAL ONE; -ONDA-104 PO; -TRAZ-253 PO
[2022-06-13 08:28] LABS: INR 1.22 (0.85-1.15); PROTHROMBIN TIME 13.1 SEC (9.6-11.6)
[2022-06-13 08:29] LABS: PARTIAL THROMBOPLASTIN TIME 27.6 SEC (26.3-35.5)
[2022-06-13 13:57] LABS: APPEARANCE BODY FLUID CLEAR (CLEAR); BODY FLUID WBC 92 /cu. mm.; COLOR,BODY FLUID YELLOW (LT YELLOW); SPECIMENTYPE,BODY FLUID PLEURAL; TOTAL VOLUME,BODY FLUID 2000 mL
[2022-06-13 13:58] LABS: BODY FLUID RBC 875 /cu. mm.
[2022-06-13 14:05] LABS: BF LYMPHOCYTE 34 %; BF MESOTHELIAL 48 %; BF MONOCYTE 2 %
== END | disposition home or self-care (01) ==
LOC: RAH 07:49
PROVIDERS: ATTEND Internal Medicine
DX: J90 Pleural effusion, not elsewhere classified (principal); Z79.01 Long term (current) use of anticoagulants; Z79.899 Other long term (current) drug therapy; Z98.890 Other specified postprocedural states
CPT/HCPCS: 32555; 71045; 89051; 85610; 85730; 87071; 87205; 36415; C1729

== ENCOUNTER 2022-07-12 15:47 | Inpatient (IN) | payer OTHER ==
[~2022-07-12] VITALS: Ht 157.5 cm; Wt 67.6 kg
[~2022-07-12 15:47] MED LIST changes: +ALPR0.5T8 PO; +GLIM4TAB36 PO; -LIDOCAINE HCL 1% 20 ML VIAL ONE; +TRAZ-253 PO
[2022-07-12 16:14] LABS: BASOPHILS % (AUTO) 0.2 % (0.0-5.0); EOSINOPHILS % (AUTO) 0.6 % (0.0-8.0); HEMATOCRIT 31.5 % (36-48); LYMPHOCYTES % (AUTO) 14.2 % (21.0-51.0); MEAN CORPUSCULAR HEMOGLOBIN 29.5 pg (27.0-33.0); MEAN CORPUSCULAR VOLUME 89.2 fL (79-99); MONOCYTES % (AUTO) 11.8 % (3.0-13.0); NEUTROPHILS % (AUTO) 72.9 % (40.0-77.0); PLATELET COUNT (AUTO) 70 K/uL (130-400); RED BLOOD CELL COUNT(AUTO) 3.53 MIL/uL (4.00-5.50); RED CELL DISTRIBUTION WIDTH 15.7 % (11.0-15.5); WHITE BLOOD COUNT (AUTO) 6.5 K/uL (4.8-10.8)
[2022-07-12 16:21] LABS: POTASSIUM 3.5 mmol/L (3.5-5.1)
[2022-07-12 16:22] LABS: INR 1.15 (0.85-1.15); PROTHROMBIN TIME 12.4 SEC (9.6-11.6)
[2022-07-12 16:24] LABS: PARTIAL THROMBOPLASTIN TIME 24.7 SEC (26.3-35.5)
[2022-07-12 16:30] LABS: TOTAL PROTEIN, SERUM 7.5 g/dL (6.0-8.3)
[2022-07-12] MEDS ORDERED: GUAIFENESIN-DM 200/20 MG 10 ML PO PRN (20:00)
[2022-07-12] MEDS ORDERED: ACETAMINOPHEN WITH CODEINE 1 TAB TAB PO PRN (20:00)
[2022-07-12] MEDS ORDERED: CEFTRIAXONE 1G VIAL IV SCH (20:00)
[2022-07-12] MEDS ORDERED: AZITHROMYCIN 250 MG TABLET PO SCH (20:00)
[2022-07-12] MEDS ORDERED: MAG/ALUM/SIMETH 30 ML UDCUP PO PRN (20:00)
[2022-07-12] MEDS ORDERED: HYDRALAZINE 20MG/ML VIAL IV PRN (20:00)
[2022-07-12] MEDS ORDERED: ALBUTEROL 0.083% 2.5 MG/3 ML INH IH PRN (20:00)
[2022-07-12] MEDS ORDERED: ACETAMINOPHEN 325 MG TAB PO PRN ×3 (20:00→21:00)
[2022-07-12] MEDS ORDERED: LACTULOSE 20 GM/30 ML UDCUP PO PRN (20:00)
[2022-07-12] MEDS ORDERED: ONDANSETRON 4MG INJ IV PRN (20:00)
[2022-07-12] MEDS ORDERED: SOLU-MEDROL 125MG VIAL IV SCH (20:00)
[2022-07-12] MEDS ORDERED: DIPHENHYDRAMINE HCL 25 MG CAPSULE PO PRN (20:00)
[2022-07-12] MEDS ORDERED: ALBUTEROL 0.083% 2.5 MG/3 ML INH IH ONE (20:34)
[2022-07-12] MEDS ORDERED: FAMOTIDINE 20MG TAB PO SCH (21:00)
[2022-07-12] MEDS ORDERED: INSULIN HUMULIN R 100 UNIT/ML 3ML SQ SCH (21:00)
[2022-07-12] MEDS ORDERED: OSELTAMIVIR PHOSPHATE 75 MG CAP PO SCH (21:00)
[2022-07-12] MEDS ORDERED: CEFTRIAXONE 1G VIAL IVP SCH (21:30)
[2022-07-12] MEDS ORDERED: DOXYCYCLINE HYCLATE 100 MG TABLET PO ONE (21:40)
[2022-07-12] MEDS ORDERED: CEFTRIAXONE 1G VIAL ONE (21:40)
[2022-07-12] MEDS ORDERED: OSELTAMIVIR PHOSPHATE 75 MG CAP ONE (21:41)
[2022-07-12] MEDS: OSELTAMIVIR PHOSPHATE 75 MG CAP PO SCH (21:49)
[2022-07-12] MEDS: DOXYCYCLINE HYCLATE 100 MG TABLET PO SCH (21:49)
[2022-07-12 22:40] VITALS: BP 128/50
[2022-07-12] MEDS ORDERED: LACT10SO9 PO (23:49)
[2022-07-12] MEDS ORDERED: IPRA3AMP24 IH (23:49)
[2022-07-12] MEDS ORDERED: ACET325T51 PO (23:49)
[2022-07-12] MEDS ORDERED: CLOB59LO3 TP (23:49)
[2022-07-12] MEDS ORDERED: RIFA550T PO (23:49)
[2022-07-12] MEDS ORDERED: ONDA4TAB10 PO (23:49)
[2022-07-12] MEDS ORDERED: FURO20TA6 PO (23:49)
[2022-07-12] MEDS ORDERED: LEVAQUIN 500 MG PO (23:49)
[2022-07-12] MEDS ORDERED: GUAI-996 PO (23:49)
[2022-07-12] MEDS ORDERED: GLUC1VIA14 IJ (23:49)
[2022-07-12] MEDS ORDERED: REGULAR INSULIN SS (23:50)
[2022-07-13] MEDS: ONDANSETRON 4MG INJ IVP PRN (00:44)
[2022-07-13 04:00] VITALS: BP 117/47
[2022-07-13 05:13] LABS: BASOPHILS % (AUTO) 0.3 % (0.0-5.0); EOSINOPHILS % (AUTO) 0.8 % (0.0-8.0); HEMATOCRIT 27.5 % (36-48); LYMPHOCYTES % (AUTO) 20.2 % (21.0-51.0); MEAN CORPUSCULAR HEMOGLOBIN 29.7 pg (27.0-33.0); MEAN CORPUSCULAR HGB CONC 33.1 g/dL (32.0-36.0); MEAN CORPUSCULAR VOLUME 89.9 fL (79-99); MONOCYTES % (AUTO) 9.1 % (3.0-13.0); NEUTROPHILS % (AUTO) 69.3 % (40.0-77.0); PLATELET COUNT (AUTO) 47 K/uL (130-400); RED BLOOD CELL COUNT(AUTO) 3.06 MIL/uL (4.00-5.50); RED CELL DISTRIBUTION WIDTH 15.6 % (11.0-15.5); WHITE BLOOD COUNT (AUTO) 3.9 K/uL (4.8-10.8)
[2022-07-13 05:15] LABS: HEMOGLOBIN A1C 5.2 % (4.0-6.0)
[2022-07-13 05:20] LABS: CREATININE 0.9 mg/dL (0.5-1.5); MAGNESIUM 1.7 mg/dL (1.80-2.40); POTASSIUM 3.9 mmol/L (3.5-5.1)
[2022-07-13 07:30] VITALS: BP 113/49
[2022-07-13] MEDS: DOXYCYCLINE HYCLATE 100 MG TABLET PO SCH (09:25)
[2022-07-13] MEDS: OSELTAMIVIR PHOSPHATE 75 MG CAP PO SCH ×2 (09:25→20:45)
[2022-07-13] MEDS: LACTULOSE 20 GM/30 ML UDCUP PO SCH ×3 (10:30→20:28)
[2022-07-13] MEDS ORDERED: LACTULOSE 20 GM/30 ML UDCUP PO SCH (10:30)
[2022-07-13 11:00] VITALS: BP 126/51
[2022-07-13] MEDS ORDERED: CEFTRIAXONE 1G VIAL IVP ONE (11:30)
[2022-07-13] MEDS ORDERED: VANCOMYCIN 1G VIAL IVPB SCH (11:30)
[2022-07-13] MEDS ORDERED: VANCOMYCIN PROTOCOL PER PHARMACY IV SCH (11:30)
[2022-07-13] MEDS ORDERED: 0.9% NACL 250ML IV SCH (11:30)
[2022-07-13] MEDS ORDERED: MORPHINE 2 MG SYG IVP PRN (11:30)
[2022-07-13] MEDS: MORPHINE 2 MG SYG IVP PRN ×2 (11:48→22:37)
[2022-07-13 11:51] LABS: INR 1.18 (0.85-1.15); PROTHROMBIN TIME 12.7 SEC (9.6-11.6)
[2022-07-13 11:52] LABS: PARTIAL THROMBOPLASTIN TIME 25.1 SEC (26.3-35.5)
[2022-07-13] MEDS ORDERED: VANCOMYCIN 1G/250ML KIT 250 ML IV SCH (12:00)
[2022-07-13] MEDS: METRONIDAZOLE 500MG/100ML BAG 100 ML IVPB SCH ×2 (15:07→20:44)
[2022-07-13] MEDS ORDERED: ALPRAZOLAM 0.5 MG TABLET PO PRN (16:30)
[2022-07-13] MEDS: FUROSEMIDE 40MG VIAL IV SCH (18:21)
[2022-07-13 20:00] VITALS: BP 116/58
[2022-07-13 20:22] LABS: APPEARANCE BODY FLUID CLEAR (CLEAR); BODY FLUID WBC 30 /cu. mm.; COLOR,BODY FLUID YELLOW (LT YELLOW); SPECIMENTYPE,BODY FLUID PLEURAL; TOTAL VOLUME,BODY FLUID 2000 mL
[2022-07-13 20:23] LABS: BODY FLUID RBC 458 /cu. mm.
[2022-07-13] MEDS: SPIRONOLACTONE 25 MG TAB PO SCH (20:43)
[2022-07-13] MEDS: TRAZODONE HCL 50 MG TAB PO SCH (20:43)
[2022-07-13] MEDS: SIMVASTATIN 20 MG TABLET PO SCH (20:43)
[2022-07-13] MEDS: BUSPIRONE HCL 5 MG TABLET PO SCH (20:43)
[2022-07-13] MEDS: RIFAXIMIN 550 MG TABLET PO SCH (20:43)
[2022-07-13 21:03] LABS: BF EOSINOPHIL 1 %; BF LYMPHOCYTE 50 %; BF MESOTHELIAL 28 %
[2022-07-14] VITALS (7 sets, daily range): BP systolic 108–119; BP diastolic 34–61
[2022-07-14] MEDS: LACTULOSE 20 GM/30 ML UDCUP PO SCH ×4 (03:54→21:52)
[2022-07-14] MEDS: FUROSEMIDE 40MG VIAL IV SCH ×2 (04:59→16:31)
[2022-07-14] MEDS: METRONIDAZOLE 500MG/100ML BAG 100 ML IVPB SCH ×3 (04:59→20:15)
[2022-07-14] MEDS ORDERED: 0.9% NACL 250ML 250 ML ONE (09:11)
[2022-07-14] MEDS: VANCOMYCIN 1G/250ML KIT 250 ML IV SCH (09:14)
[2022-07-14] MEDS: PANTOPRAZOLE 40 MG TAB DR PO SCH (09:15)
[2022-07-14] MEDS: BUSPIRONE HCL 5 MG TABLET PO SCH ×2 (09:15→20:14)
[2022-07-14] MEDS: METOLAZONE 2.5 MG TABLET PO SCH (09:16)
[2022-07-14] MEDS: RIFAXIMIN 550 MG TABLET PO SCH ×2 (09:16→20:14)
[2022-07-14] MEDS: GLIMEPIRIDE 2 MG TABLET PO SCH (09:16)
[2022-07-14] MEDS: OSELTAMIVIR PHOSPHATE 75 MG CAP PO SCH ×2 (09:16→20:14)
[2022-07-14] MEDS: SERTRALINE HCL 50 MG TABLET PO SCH (09:16)
[2022-07-14] MEDS: SPIRONOLACTONE 25 MG TAB PO SCH ×2 (09:16→20:14)
[2022-07-14] MEDS: MORPHINE 2 MG SYG IVP PRN (11:10)
[2022-07-14] MEDS: TRAZODONE HCL 50 MG TAB PO SCH (20:15)
[2022-07-14] MEDS: CEFTRIAXONE 1G VIAL IVP SCH (20:15)
[2022-07-14] MEDS: SIMVASTATIN 20 MG TABLET PO SCH (20:15)
[2022-07-15 03:56] VITALS: BP 99/61
[2022-07-15] MEDS: METRONIDAZOLE 500MG/100ML BAG 100 ML IVPB SCH ×3 (04:00→21:19)
[2022-07-15] MEDS: FUROSEMIDE 40MG VIAL IV SCH ×2 (04:00→16:14)
[2022-07-15] MEDS: LACTULOSE 20 GM/30 ML UDCUP PO SCH ×4 (04:00→21:20)
[2022-07-15 07:38] VITALS: BP 110/44
[2022-07-15] MEDS: PANTOPRAZOLE 40 MG TAB DR PO SCH (08:50)
[2022-07-15] MEDS: METOLAZONE 2.5 MG TABLET PO SCH (08:50)
[2022-07-15] MEDS: RIFAXIMIN 550 MG TABLET PO SCH ×2 (08:50→21:19)
[2022-07-15] MEDS: OSELTAMIVIR PHOSPHATE 75 MG CAP PO SCH ×2 (08:50→21:20)
[2022-07-15] MEDS: BUSPIRONE HCL 5 MG TABLET PO SCH ×2 (08:50→21:19)
[2022-07-15] MEDS: SERTRALINE HCL 50 MG TABLET PO SCH (08:50)
[2022-07-15] MEDS: SPIRONOLACTONE 25 MG TAB PO SCH ×2 (08:51→21:19)
[2022-07-15] MEDS: GLIMEPIRIDE 2 MG TABLET PO SCH (08:51)
[2022-07-15] MEDS: VANCOMYCIN 1G/250ML KIT 250 ML IV SCH (09:39)
[2022-07-15 11:00] VITALS: BP 120/65
[2022-07-15 16:00] VITALS: BP 115/69
[2022-07-15] MEDS: ONDANSETRON 4MG INJ IVP PRN (16:25)
[2022-07-15 20:00] VITALS: BP 111/49
[2022-07-15] MEDS: METOCLOPRAMIDE 5 MG TABLET PO SCH (21:19)
[2022-07-15] MEDS: TRAZODONE HCL 50 MG TAB PO SCH (21:19)
[2022-07-15] MEDS: CEFTRIAXONE 1G VIAL IVP SCH (21:19)
[2022-07-15] MEDS: SIMVASTATIN 20 MG TABLET PO SCH (21:19)
[2022-07-15 23:58] VITALS: BP 112/69
[2022-07-16] VITALS (7 sets, daily range): BP systolic 103–123; BP diastolic 43–49
[2022-07-16] MEDS: FUROSEMIDE 40MG VIAL IV SCH ×2 (04:04→17:22)
[2022-07-16] MEDS: METRONIDAZOLE 500MG/100ML BAG 100 ML IVPB SCH ×3 (04:05→21:04)
[2022-07-16] MEDS: METOCLOPRAMIDE 5 MG TABLET PO SCH ×4 (04:05→21:03)
[2022-07-16 05:46] LABS: HEMATOCRIT 29.6 % (36-48); MEAN CORPUSCULAR HEMOGLOBIN 29.2 pg (27.0-33.0); MEAN CORPUSCULAR HGB CONC 33.4 g/dL (32.0-36.0); MEAN CORPUSCULAR VOLUME 87.3 fL (79-99); RED BLOOD CELL COUNT(AUTO) 3.39 MIL/uL (4.00-5.50); RED CELL DISTRIBUTION WIDTH 15.4 % (11.0-15.5); WHITE BLOOD COUNT (AUTO) 3.8 K/uL (4.8-10.8)
[2022-07-16 05:56] LABS: MAGNESIUM 1.6 mg/dL (1.80-2.40); POTASSIUM 3.2 mmol/L (3.5-5.1)
[2022-07-16] MEDS ORDERED: LIDOCAINE HCL-MPF 1% 2ML VIAL IV PRN (08:00)
[2022-07-16] MEDS ORDERED: POTASSIUM CHLORIDE 20MEQ/100ML 100 ML IV PRN (08:00)
[2022-07-16] MEDS ORDERED: POTASSIUM CHLORIDE 10% ELIXIR 20 MEQ/15 ML UDCUP PO PRN (08:00)
[2022-07-16] MEDS ORDERED: MAGNESIUM 4GM PREMIX 100ML 100 ML IV SCH (08:00)
[2022-07-16] MEDS: LACTULOSE 20 GM/30 ML UDCUP PO SCH ×3 (09:00→21:03)
[2022-07-16] MEDS: GLIMEPIRIDE 2 MG TABLET PO SCH (09:00)
[2022-07-16] MEDS: METOLAZONE 2.5 MG TABLET PO SCH (09:09)
[2022-07-16] MEDS: BUSPIRONE HCL 5 MG TABLET PO SCH ×2 (09:09→21:04)
[2022-07-16] MEDS: SERTRALINE HCL 50 MG TABLET PO SCH (09:09)
[2022-07-16] MEDS: OSELTAMIVIR PHOSPHATE 75 MG CAP PO SCH ×2 (09:09→21:03)
[2022-07-16] MEDS: PANTOPRAZOLE 40 MG TAB DR PO SCH (09:09)
[2022-07-16] MEDS: SPIRONOLACTONE 25 MG TAB PO SCH ×2 (09:09→21:03)
[2022-07-16] MEDS: RIFAXIMIN 550 MG TABLET PO SCH ×2 (09:09→21:03)
[2022-07-16] MEDS: KCL 20 MEQ ERTAB PO PRN ×2 (09:10→11:39)
[2022-07-16] MEDS: VANCOMYCIN 1.25 GM/250 ML BAG 250 ML IV SCH (09:47)
[2022-07-16] MEDS ORDERED: LIDOCAINE HCL MPF 1% 5ML VIAL ONE ×2 (10:33→16:09)
[2022-07-16] MEDS: MORPHINE 2 MG SYG IVP PRN ×2 (16:49→21:15)
[2022-07-16] MEDS ORDERED: LIDOCAINE HCL MPF 1% 5ML VIAL IV SCH (16:52)
[2022-07-16] MEDS ORDERED: MORPHINE 2 MG SYG IVP ONE ×2 (18:00)
[2022-07-16] MEDS: CEFTRIAXONE 1G VIAL IVP SCH (21:03)
[2022-07-16] MEDS: TRAZODONE HCL 50 MG TAB PO SCH (21:03)
[2022-07-16] MEDS: SIMVASTATIN 20 MG TABLET PO SCH (21:03)
[2022-07-17 03:49] VITALS: BP 130/55
[2022-07-17] MEDS: FUROSEMIDE 40MG VIAL IV SCH ×2 (03:53→16:04)
[2022-07-17] MEDS: METRONIDAZOLE 500MG/100ML BAG 100 ML IVPB SCH ×3 (03:53→20:43)
[2022-07-17] MEDS: MORPHINE 2 MG SYG IVP PRN ×4 (03:53→20:43)
[2022-07-17 05:03] LABS: HEMATOCRIT 31.6 % (36-48); MEAN CORPUSCULAR HGB CONC 33.2 g/dL (32.0-36.0); MEAN CORPUSCULAR VOLUME 87.3 fL (79-99); RED BLOOD CELL COUNT(AUTO) 3.62 MIL/uL (4.00-5.50); RED CELL DISTRIBUTION WIDTH 15.7 % (11.0-15.5); WHITE BLOOD COUNT (AUTO) 3.9 K/uL (4.8-10.8)
[2022-07-17 05:13] LABS: MAGNESIUM 2.7 mg/dL (1.80-2.40); POTASSIUM 3.6 mmol/L (3.5-5.1)
[2022-07-17] MEDS: METOCLOPRAMIDE 5 MG TABLET PO SCH ×4 (05:37→20:43)
[2022-07-17] MEDS: KCL 20 MEQ ERTAB PO PRN ×2 (05:38→16:47)
[2022-07-17 07:00] VITALS: BP 121/46
[2022-07-17] MEDS: LACTULOSE 20 GM/30 ML UDCUP PO SCH ×2 (09:08→20:42)
[2022-07-17] MEDS: SERTRALINE HCL 50 MG TABLET PO SCH (09:08)
[2022-07-17] MEDS: VANCOMYCIN 1.25 GM/250 ML BAG 250 ML IV SCH (09:08)
[2022-07-17] MEDS: PANTOPRAZOLE 40 MG TAB DR PO SCH (09:09)
[2022-07-17] MEDS: BUSPIRONE HCL 5 MG TABLET PO SCH ×2 (09:09→20:43)
[2022-07-17] MEDS: GLIMEPIRIDE 2 MG TABLET PO SCH (09:09)
[2022-07-17] MEDS: OSELTAMIVIR PHOSPHATE 75 MG CAP PO SCH ×2 (09:09→20:42)
[2022-07-17] MEDS: METOLAZONE 2.5 MG TABLET PO SCH (09:09)
[2022-07-17] MEDS: RIFAXIMIN 550 MG TABLET PO SCH ×2 (09:09→20:43)
[2022-07-17] MEDS: SPIRONOLACTONE 25 MG TAB PO SCH ×2 (09:09→20:42)
[2022-07-17 12:13] VITALS: BP 115/46
[2022-07-17 16:04] VITALS: BP 118/51
[2022-07-17] MEDS ORDERED: DEXAMETHASONE 4 MG TAB PO SCH (17:00)
[2022-07-17 19:25] VITALS: BP 117/47
[2022-07-17] MEDS: CEFTRIAXONE 1G VIAL IVP SCH (20:42)
[2022-07-17] MEDS: TRAZODONE HCL 50 MG TAB PO SCH (20:42)
[2022-07-17] MEDS: SIMVASTATIN 20 MG TABLET PO SCH (20:43)
[2022-07-17 23:17] VITALS: BP 102/47
[2022-07-18 03:35] VITALS: BP 103/57
[2022-07-18] MEDS: METRONIDAZOLE 500MG/100ML BAG 100 ML IVPB SCH ×3 (04:18→20:32)
[2022-07-18] MEDS: FUROSEMIDE 40MG VIAL IV SCH ×2 (04:18→17:21)
[2022-07-18] MEDS: MORPHINE 2 MG SYG IVP PRN ×2 (04:20→13:01)
[2022-07-18] MEDS: METOCLOPRAMIDE 5 MG TABLET PO SCH ×4 (05:50→20:35)
[2022-07-18 07:41] LABS: HEMATOCRIT 34.4 % (36-48); MEAN CORPUSCULAR HEMOGLOBIN 28.9 pg (27.0-33.0); MEAN CORPUSCULAR HGB CONC 32.6 g/dL (32.0-36.0); MEAN CORPUSCULAR VOLUME 88.7 fL (79-99); RED BLOOD CELL COUNT(AUTO) 3.88 MIL/uL (4.00-5.50); RED CELL DISTRIBUTION WIDTH 15.4 % (11.0-15.5)
[2022-07-18 07:54] LABS: CREATININE 1.3 mg/dL (0.5-1.5); MAGNESIUM 2.2 mg/dL (1.80-2.40); POTASSIUM 4.9 mmol/L (3.5-5.1)
[2022-07-18 08:00] VITALS: BP 123/54
[2022-07-18] MEDS: SERTRALINE HCL 50 MG TABLET PO SCH (09:16)
[2022-07-18] MEDS: RIFAXIMIN 550 MG TABLET PO SCH ×2 (09:16→20:35)
[2022-07-18] MEDS: LACTULOSE 20 GM/30 ML UDCUP PO SCH ×2 (09:16→20:35)
[2022-07-18] MEDS: BUSPIRONE HCL 5 MG TABLET PO SCH ×2 (09:16→20:35)
[2022-07-18] MEDS: METOLAZONE 2.5 MG TABLET PO SCH (09:17)
[2022-07-18] MEDS: GLIMEPIRIDE 2 MG TABLET PO SCH (09:17)
[2022-07-18] MEDS: VANCOMYCIN 1.25 GM/250 ML BAG 250 ML IV SCH (09:17)
[2022-07-18] MEDS: PANTOPRAZOLE 40 MG TAB DR PO SCH (09:17)
[2022-07-18] MEDS: SPIRONOLACTONE 25 MG TAB PO SCH ×2 (09:17→20:35)
[2022-07-18 12:00] VITALS: BP 112/54
[2022-07-18 16:00] VITALS: BP 124/54
[2022-07-18] MEDS ORDERED: MORPHINE 2 MG SYG IVP PRN ×2 (18:30)
[2022-07-18 20:00] VITALS: BP 134/53
[2022-07-18] MEDS: TRAZODONE HCL 50 MG TAB PO SCH (20:35)
[2022-07-18] MEDS: CEFTRIAXONE 1G VIAL IVP SCH (20:35)
[2022-07-18] MEDS: SIMVASTATIN 20 MG TABLET PO SCH (20:35)
== END 2022-07-19 01:13 | disposition short-term general hospital (02) | DRG 177 ==
LOC: EDH 15:47 → EDHIP 20:41 → 3AH 22:43
PROVIDERS: ADMIT Internal Medicine Infectious Disease; ATTEND Internal Medicine Infectious Disease
PROC: 0W9B30Z Drainage of Left Pleural Cavity with Drainage Device, Percutaneous Approach (ICD-10-PCS; principal; 2022-07-13)
PROC: 0W9B30Z Drainage of Left Pleural Cavity with Drainage Device, Percutaneous Approach (ICD-10-PCS; 2022-07-16)
DX: U07.1 COVID-19 (principal); J96.21 Acute and chronic respiratory failure with hypoxia; K65.2 Spontaneous bacterial peritonitis; R18.8 Other ascites; J91.8 Pleural effusion in other conditions classified elsewhere; I10 Essential (primary) hypertension; E11.9 Type 2 diabetes mellitus without complications; D69.6 Thrombocytopenia, unspecified; J11.1 Influenza due to unidentified influenza virus with other respiratory manifestations; K74.60 Unspecified cirrhosis of liver; E78.00 Pure hypercholesterolemia, unspecified; Z78.9 Other specified health status; Z28.39 Other underimmunization status; Z79.899 Other long term (current) drug therapy; Z83.3 Family history of diabetes mellitus
CPT/HCPCS: 32555; 36415; 49083; 71045; 74176; 76700; 80048; 80053; 80202; 82945; 82948; 83036; 83615; 83735; 83986; 84155; 84157; 84484; 85025; 85027; 85610; 85730; 87071; 87116; 87205; 87206; 87635; 87804; 88112; 88305; 89051; 93005; 97039; C1729; C9803; G0378; J0696; J1940; J2405; J3370; J3475; J3490; J7050; J8540